=== PATIENT | male | born 1995 | race African-American/Black ===

== ENCOUNTER 2019-08-13 14:20 | Day surgery (SDC) | payer OTHER ==
[~2019-08-13] VITALS: Ht 190.5 cm; Wt 116.3 kg
--- NOTE | 2019-08-13 15:03 | REP ---
KUB: Two views. History: Swallowed foreign body. Travels size toothbrush. Findings: There is an elongate opaque foreign body 3.7 cm in length projecting in the gastric lumen in the left upper quadrant consistent with the ingested foreign body. Presumably, this is partially opaque. Bowel gas pattern is otherwise unremarkable. Psoas margins and flank stripes are intact. No mass or organomegaly is seen. Impression: Opaque ingested foreign body projecting in the lumen of the stomach. Left upper quadrant. The opaque portion measures 3.7 cm in length. Electronically Signed by Mychal Scherer MD 08/13/2019 03:17 P
[2019-08-13 17:08] LABS: BASO % 0.5 % (0.0-1.0); EOS % 0.5 % (0.0-3.0); HEMATOCRIT 48.4 % (42.0-52.0); HEMOGLOBIN 16.5 g/dl (13.5-17.5); LYMPH # 2.2 10^3/uL (1.5-5.0); LYMPH % 25.5 % (24.0-44.0); MEAN CORPUSCULAR HEMOGLOBIN 28.9 pg (27.0-33.0); MEAN CORPUSCULAR HGB CONC 34.1 g/dl (32.0-36.5); MEAN CORPUSCULAR VOLUME 84.9 fl (80.0-96.0); MONO # 0.9 10^3/uL (0.0-0.8); MONO % 10.1 % (0.0-5.0); NEUTROPHILS # 5.4 10^3/uL (1.5-8.5); NEUTROPHILS % 63.3 % (36.0-66.0); PLATELET COUNT, AUTOMATED 216 10^3/uL (150-450); WHITE BLOOD COUNT 8.6 10^3/uL (4.0-10.0)
[2019-08-13] MEDS ORDERED: fentaNYL 100 MCG/2 ML INJECTION (J3010) As Ordered ONE (17:23)
[2019-08-13] MEDS ORDERED: MIDAZOLAM INJ 2 MG/2 ML VIAL (J2250) As Ordered ONE (17:23)
[2019-08-13] MEDS ORDERED: propofoL 200 MG/20 ML VIAL As Ordered ONE (17:25)
[2019-08-13] MEDS ORDERED: SUCCINYLCHOLINE 100 MG/5 ML SYRINGE (J0330) As Ordered ONE (17:25)
[2019-08-13] MEDS ORDERED: LIDOCAINE 2% INJ 100 MG/5 ML SDV (FOR ANES.) As Ordered ONE (17:25)
[2019-08-13] MEDS ORDERED: ROCURONIUM BROMIDE 50 MG/5 ML VIAL As Ordered ONE (17:25)
[2019-08-13 17:42] LABS: BLOOD UREA NITROGEN 21 MG/DL (7-18); CARBON DIOXIDE LEVEL 26 MEQ/L (21-32); CHLORIDE LEVEL 105 MEQ/L (98-107); CREATININE FOR GFR 1.25 MG/DL (0.70-1.30); GLOMERULAR FILTRATION RATE > 60.0 (>60); GLUCOSE, FASTING 81 MG/DL (70-100); POTASSIUM SERUM 3.6 MEQ/L (3.5-5.1); SODIUM LEVEL 138 MEQ/L (136-145)
[2019-08-13] MEDS ORDERED: dexameTHASONE 4 MG/ML 1ML VIAL (J1100) As Ordered ONE (17:47)
[2019-08-13] MEDS ORDERED: ONDANSETRON 4MG/2ML VIAL (J2405) As Ordered ONE (17:48)
[2019-08-13] MEDS ORDERED: SUGAMMADEX SODIUM 500 MG/5 ML VIAL (BRIDION) As Ordered ONE (17:53)
[2019-08-13] MEDS ORDERED: LR 1,000 ML IV SCH (18:30)
[2019-08-13] MEDS ORDERED: ONDANSETRON 4MG/2ML VIAL (J2405) IV PRN (18:30)
--- NOTE | 2019-08-13 18:42 | ROOR ---
Patient Name: Claus Garza Procedure Date: 08/13/2019 5:13 PM Date of : 1995 Age: 24 Gender: Male Note Status: Finalized Procedure: Upper GI endoscopy Indications: Foreign body in the stomach Providers: Reddy Mckenzie MD Referring MD: Darvin Shankar, 2. Inpatient 2. Inpatient Requesting Provider: Medicines: Monitored Anesthesia Care Complications: No immediate complications. Procedure: Pre-Anesthesia Assessment: - Prior to the procedure, a History and Physical was performed, and patient medications and allergies were reviewed. The patient is competent. The risks and benefits of the procedure and the sedation options and risks were discussed with the patient. All questions were answered and informed consent was obtained. Patient identification and proposed procedure were verified by the physician, the nurse and the anesthesiologist in the procedure room. Mental Status Examination: alert and oriented. Airway Examination: normal oropharyngeal airway and neck mobility. Respiratory Examination: clear to auscultation. CV Examination: normal. Prophylactic Antibiotics: The patient does not require prophylactic antibiotics. Prior Anticoagulants: The patient has taken no previous anticoagulant or antiplatelet agents. ASA Grade Assessment: II - A patient with mild systemic disease. After reviewing the risks and benefits, the patient was deemed in satisfactory condition to undergo the procedure. The anesthesia plan was to use moderate sedation / analgesia (conscious sedation). Immediately prior to administration of medications, the patient was re-assessed for adequacy to receive sedatives. The heart rate, respiratory rate, oxygen saturations, blood pressure, adequacy of pulmonary ventilation, and response to care were monitored throughout the procedure. The physical status of the patient was re-assessed after the procedure. The Endoscope was introduced through the mouth, and advanced to the proximal jejunum. The upper GI endoscopy was accomplished without difficulty. The patient tolerated the procedure well. Findings: The examined esophagus was normal. Scattered moderate inflammation characterized by linear erosions and serpentine ulcerations was found in the gastric fundus, in the gastric body and at the incisura. A broken brush head and bag of suspected drug were found in the gastric body and in the gastric antrum. Removal was accomplished with a Jimenez net and snare. The pathology specimen was placed into Bottle Number 1. Charge nurse and the accompanying copper plate lithographer were update and to be processed as per hospital policy. The duodenal bulb, second portion of the duodenum, third portion of the duodenum and fourth portion of the duodenum were normal. The examined jejunum was normal. The remaining peice of brush is not found in entire exam. Impression: - Normal esophagus. - Likely foriegn body related gastritis. - A broken brush head and bag of suspected drug were found in the stomach. Removal was successful. - Normal duodenal bulb, second portion of the duodenum, third portion of the duodenum and fourth portion of the duodenum. - Normal examined jejunum. Recommendation: - Patient has a contact number available for emergencies. The signs and symptoms of potential delayed complications were discussed with the patient. Return to normal activities tomorrow. Written discharge instructions were provided to the patient. - Full liquid diet - advance as tolerated to resume regular diet. - Observe patient's clinical course. - Return to primary care physician. Reddy Mckenzie MD Reddy Mckenzie MD 08/13/2019 6:42:37 PM Electronically signed by Reddy Mckenzie MD Number of Addenda: 0 Note Initiated On: 08/13/2019 5:13 PM Estimated Blood Loss: Estimated blood loss was minimal.
[2019-08-13 19:25] VITALS: BP 136/82
--- NOTE | 2019-08-13 19:32 | CR.PDOC ---
General Date of Consultation: Aug 13, 2019 Consultation REASON FOR CONSULTATION/CHIEF COMPLAINT: Medical clearance for discharge. HISTORY OF PRESENT ILLNESS: 24-year-old male with past medical history of anxiety and depression presents from custodial after ingesting toothbrush and a bag containing drugs. Patient underwent emergent EGD with removal of toothbrush and back containing drugs, which was sealed and did not break in the process of removing. Patient reports multiple past suicide attempts with cutting his wrist and current ingestion was also an attempt to commit suicide. Patient reports ingesting the bag of drugs on Saturday and he "forgot about it" until it was mentioned today. He is seen in PACU, comfortable in bed, without any complaints, denies any shortness of breath, chest pain, nausea, vomiting, abdominal pain, diarrhea, constipation, headache or dizziness. He reports smoking marijuana on a daily basis. He has been evaluated by psychiatry recently, but has not been started on any medications. He denies taking any medications at this time. 10 point review of system is negative except for above ALLERGIES: Please see below. HOME MEDICATIONS: Please see below. PAST MEDICAL HISTORY: 1. Anxiety/depression. PAST SURGICAL HISTORY: 1. None SOCIAL HISTORY: Denies alcohol use. Smokes 3-5 cigarettes daily. Smokes marijuana every day PHYSICAL EXAMINATION: VITAL SIGNS: Please see below. GENERAL: No distress HEENT: Normocephalic, atraumatic, moist mucous membranes NECK: Supple CARDIOVASCULAR EXAMINATION: S1, S2, no murmurs RESPIRATORY EXAMINATION: Clear to auscultation, no wheezing ABDOMINAL EXAMINATION: Soft, nontender, nondistended, positive bowel sounds EXTREMITIES: Range of motion intact SKIN: No rash NEUROLOGICAL EXAMINATION: Alert and oriented 3, no focal deficits PSYCHIATRIC EXAMINATION: Calm and cooperative LABORATORY DATA: Please see below. ASSESSMENT/PLAN: 24-year-old male with past medical history of anxiety, depression, who was brought to the hospital after ingesting toothbrush and back containing drugs in an attempt to commit suicide. 1. Ingestion of toothbrush/drugs. Underwent EGD with removal of toothbrush and bag containing drugs, which was sealed and did not leak in the process of removing. Patient is asymptomatic, labs within normal limits, hemodynamically and clinically stable. Patient is medically stable and cleared for discharge back to custodial with close monitoring for 24-48 hours. 2. Anxiety/depression. Not on medication at this time, recommend outpatient follow-up with psychiatrist as patient has had multiple suicide attempts in the past month. Vital Signs/I&O Vital Signs Date Time Temp Pulse Resp B/P (MAP) Pulse Ox O2 Delivery O2 Flow Rate FiO2 08/13/19 19:18 75 18 142/77 (98) 97 Room Air 08/13/19 19:08 98 Laboratory Data Labs 24H Laboratory Tests 2 08/13/19 16:46: Immature Granulocyte % (Auto) 0.1, Neutrophils (%) (Auto) 63.3, Lymphocytes (%) (Auto) 25.5, Monocytes (%) (Auto) 10.1H, Eosinophils (%) (Auto) 0.5, Basophils (%) (Auto) 0.5, Neutrophils # (Auto) 5.4, Lymphocytes # (Auto) 2.2, Monocytes # (Auto) 0.9H, Eosinophils # (Auto) 0.0, Basophils # (Auto) 0.0, Nucleated Red Blood Cells % (auto) 0.0, Anion Gap 7L, Glomerular Filtration Rate > 60.0, Calcium Level 9.0 CBC/BMP Laboratory Tests 08/13/19 16:46 Allergies Coded Allergies: No Known Allergies (Unverified , 08/13/19) Home Medications No Active Prescriptions or Reported Meds DARCY GOMEZ MD Aug 13, 2019 19:32
== END 2019-08-13 19:57 | disposition home or self-care (01) ==
LOC: M ED 14:20 → M SDC 14:21
PROVIDERS: ATTEND Internal Medicine Gastroenterology
DX: T18.108A Unspecified foreign body in esophagus causing other injury, initial encounter (principal); X58.XXXA Exposure to other specified factors, initial encounter; Y92.138 Other place on military base as the place of occurrence of the external cause; R45.851 Suicidal ideations; F32.9 Major depressive disorder, single episode, unspecified; F41.9 Anxiety disorder, unspecified; F17.210 Nicotine dependence, cigarettes, uncomplicated; F12.10 Cannabis abuse, uncomplicated
CPT/HCPCS: 43247; 74018; 80048; 85025; 99284; J0330; J1100; J2250; J2405; J3010

== ENCOUNTER 2019-08-17 20:09 | Observation (INO) | payer OTHER ==
[~2019-08-17] VITALS: Ht 185.4 cm; Wt 115.0 kg
[2019-08-17] MEDS ORDERED: LIDOCAINE 2% INJ 100 MG/5 ML SDV (FOR ANES.) As Ordered ONE (22:02)
[2019-08-17] MEDS ORDERED: propofoL 200 MG/20 ML VIAL As Ordered ONE ×2 (22:02→22:55)
[2019-08-17] MEDS ORDERED: SUCCINYLCHOLINE 100 MG/5 ML SYRINGE (J0330) As Ordered ONE (22:02)
[2019-08-17] MEDS ORDERED: MIDAZOLAM INJ 2 MG/2 ML VIAL (J2250) As Ordered ONE (22:02)
[2019-08-17] MEDS ORDERED: fentaNYL 100 MCG/2 ML INJECTION (J3010) As Ordered ONE (22:02)
[2019-08-17] MEDS ORDERED: ONDANSETRON 4MG/2ML VIAL (J2405) As Ordered ONE (22:47)
[2019-08-17] MEDS ORDERED: dexameTHASONE 4 MG/ML 1ML VIAL (J1100) As Ordered ONE (22:48)
--- NOTE | 2019-08-17 23:35 | ROOR ---
Patient Name: Claus Garza Procedure Date: 08/17/2019 9:44 PM Date of : 1995 Age: 24 Gender: Male Note Status: Finalized Procedure: Upper GI endoscopy Indications: Foreign body in the stomach, Foreign body in the small bowel, Foreign body in the GI tract Providers: Darvin RO MD Referring MD: 2. Inpatient 2. Inpatient Requesting Provider: Medicines: Propofol per Anesthesia Complications: No immediate complications. Procedure: Pre-Anesthesia Assessment: - The heart rate, respiratory rate, oxygen saturations, blood pressure, adequacy of pulmonary ventilation, and response to care were monitored throughout the procedure. The Endoscope was introduced through the mouth, and advanced to the second/third part of duodenum. The Endoscope was then withdrawn and a Pediatric Colonoscope was introduced through the mouth, and advanced to at least the fourth part of duodenum . The upper GI endoscopy was accomplished without difficulty. The patient tolerated the procedure well. Findings: The esophagus was normal. The stomach was normal. The examined duodenum was normal. Impression: - Normal esophagus. - Normal stomach. - Normal examined duodenum up to 4 th portion. - No specimens collected. - Foreign Body was not found--Foreign body has passed pylorus and beyond reach with EGD/pediatric colonoscope. Recommendation: - [facility] the [facility]--Await spontaneous passage of FB/Monitor with daily KUB - Clear liquid diet. - Daily KUB/Abdominal films til Foreign body has completely passed GI tract on Xray. - Stat CT A/P r/o perf for severe abdominal pain/peritoneal signs/fever. - Consult surgery if FB does not spontaneously pass GI tract/for complications/obstruction/abdominal pain. Darvin Ro MD Darvin RO MD 08/17/2019 11:35:23 PM Electronically signed by Darvin RO MD Number of Addenda: 0 Note Initiated On: 08/17/2019 9:44 PM Estimated Blood Loss: Estimated blood loss: none.
[2019-08-17] MEDS ORDERED: LR 1,000 ML IV SCH (23:45)
[2019-08-17] MEDS ORDERED: ONDANSETRON 4MG/2ML VIAL (J2405) IV PRN (23:45)
[2019-08-17] MEDS ORDERED: oxyCODONE 5MG TAB PO PRN (23:45)
[2019-08-17] MEDS ORDERED: fentaNYL 100 MCG/2 ML INJECTION (J3010) IV PRN (23:45)
[2019-08-17] MEDS ORDERED: HYDROMORPHONE HCL 0.5 MG/ 0.5 ML SYRINGE (J1170 PER 1) IV PRN (23:45)
[2019-08-17] MEDS ORDERED: oxyCODONE 5MG TAB As Ordered ONE (23:57)
[2019-08-18] VITALS (8 sets, daily range): BP systolic 121–140; BP diastolic 69–87
[2019-08-18] MEDS ORDERED: MOM 30ML SUSPENSION UDC PO ONE (00:30)
[2019-08-18] MEDS ORDERED: ACETAMINOPHEN TAB 650MG DOSE (2X325MG) PO PRN (01:00)
[2019-08-18] MEDS ORDERED: MOM 30ML SUSPENSION UDC PO PRN (01:00)
[2019-08-18] MEDS ORDERED: MAALOX 30 ML SUSP *UDC PO PRN (01:00)
--- NOTE | 2019-08-18 01:05 | HPEPDOC ---
General Date of Admission Aug 18, 2019 at 00:31 Date of Service: Aug 18, 2019 Chief Complaint The patient is a 24-year-old male admitted with a reason for visit of Progress Of Foreign Body. Source: Patient Exam Limitations: No limitations Timing/Duration: 4-6 hours Associated Symptoms: Denies Symptoms History of Present Illness 24 male with severe history of depression and multiple suicide attempts presents from skilled nursing due to ingestion of a toothbrush. Patient reports that he felt suicidal and attempted to kill himself by swallowing a toothbrush. The toothbrush was snapped in half so it would have sharp edges. GI was called from the ER and patient underwent emergency endoscopy which is unable to retrieve foreign object. As per GI, and likely pass the pylorus at this time and is unable to be reached. Patient currently states that he has no pain or discomfort right now. He denies any nausea, vomiting, abdominal pain. He has no fevers, chills, shortness of breath, chest pain, bloody stools. His last bowel movement was approximately 12:00 this afternoon which is normal. He has no other complaints this time. Patient does report hearing voices at times to hurt himself. However these voices have not been heard in quite some time. Denies any visual hallucinations but does endorse depressed mood at this time. When asked the patient was hurt himself he states yes but he has no further plan. Patient to be admitted for observation as we wait for an object to spontaneous past as per GI recommendations. Issue currently is incarcerated at this time. He smokes cigarettes occasionally, drinks occasionally, smokes marijuana when home. Home Medications No Active Prescriptions or Reported Meds Allergies Coded Allergies: No Known Allergies (Unverified , 08/17/19) Past Medical History Medical History Severe depression and multiple suicide attempts Surgical History None Family History Significant Family History: No pertinent family hx, Hypertension Social History * Smoker: current smoker (smokes a few cigarettes daily) Alcohol: occationally Drugs: marijuana Psychosocial History: Depression, Prior suicide attempt A-FIB/CHADSVASC A-FIB History Current/History of A-Fib/PAF?: No Review of Systems Constitutional: Denies: Chills, Fever, Malaise, Night Sweats, Weakness, Fatigue , Weight Loss, Lethargy, Other Eyes: Denies: Pain, Vision change ENT: Denies: Head Aches, Sore Throat, Epistaxis Skin: Denies: Rash, Lesions Pulmonary: Denies: Dyspnea, Cough, Pleuritic Chest Pain Cardiovascular: Denies: Chest Pain, Palpitations, Orthopnea, Edema, Lt Headed ness Gastrointestinal: Denies: Nausea, Vomiting, Abdominal Pain, Diarrhea, Constipation, Melena, Hematochezia Genitourinary: Denies: Dysuria Hematologic: Denies: Bruising Musculoskeletal: Denies: Back Pain Neurological: Denies: Weakness, Numbness, Change in speech, Confusion Psych: Reports: Depression, Thoughts of Self Harm; Denies: Thoughts of Harming Other Physical Examination General Exam: Positive: Alert, Cooperative, No Acute Distress Eye Exam: Positive: PERRLA, Conjunctiva & lids normal, EOMI ENT Exam: Positive: Atraumatic, Mucous membr. moist/pink, Tongue Midline; Negative: Pharyngeal Edema Neck Exam: Positive: Supple, +2 carotid pulse wo bruit; Negative: JVD, thyromegaly Chest Exam: Positive: Clear to auscultation, Normal air movement Heart Exam: Positive: Rate Normal, Regular Rhythm, Normal S1, Normal S2; Negative: Murmurs, Rubs Abdomen Exam: Positive: Normal bowel sounds, Soft, Other (no palpable masses noted on deep palpation); Negative: Tenderness, Hepatospenomegaly Extremity Exam: Negative: Clubbing Skin Exam: Positive: Nl turgor and temperature; Negative: Rash, Breakdown Neuro Exam: Positive: Strength at 5/5 X4 ext, Normal Tone, Sensation Intact, Cranial Nerves 3-12 NL Psych Exam: Positive: Mental status NL, Oriented x 3, Other (appears to be depressed, withdrawn.) Vital Signs Vital Signs Date Time Temp Pulse Resp B/P (MAP) Pulse Ox O2 Delivery O2 Flow Rate FiO2 08/18/19 00:10 74 16 130/81 (97) 98 Room Air 08/18/19 00:00 97.4 08/17/19 23:25 10 RAD Interpretation STUDY: abdominal x-ray Rad Actions: Films Reviewed RAD Interpretation: Other Result Comments: (foreign body is visible around the epigastric area) Assessment/Plan 24-year-old male with past medical history of severe depression and multiple suicide attempts presents for ingestion of a broken tooth brush in a suicide attempt again. EGD was attempted with no success as the foreign object had already passed through the pylorus. Patient to be admitted for observation so that we can visualize foreign object being passed via his rectum without any complications. Patient is currently an inmate in penitentiary and correctional officers are with him at bedside. Problems (1) Swallowed foreign body Status: Acute Problem Text: Patient swallowed a broken tooth brush in a suicide attempt. Unable to retrieve the item via EGD by the GI team. - Clear liquid diet for now - Serial KUBs every 8 hours - Immediate surgical consult if patient becomes unstable, has worsening abdominal pain, or any evidence of obstruction present due to risk of perforation - GI team signed off - Once foreign body passes patient will be stable for discharge back to penitentiary (2) Depressed Problem Text: Patient is severely depressed and has had multiple suicide attempts in the past involving gunshots, wrist slitting, swallowing a foreign objects, drowning, attempt to hang himself. Patient appears to be acutely depressed at this time and endorses thoughts of hurting self although he has no plan. Patient would likely benefit from psychiatric evaluation at this time given he is a threat to himself -Will call for psych consult given the patient's severe depression and multiple suicide attempts in the past - No need for one-to-one observation given correctional officers present at bedside 24 7 Plan / VTE VTE Prophylaxis Ordered?: Yes Plan Diet: Continue Current Activity: Continue Current Anticipated Discharge: Other Anticipated D/C (penitentiary versus psych) TOMI LOVE MD Aug 18, 2019 01:05
--- NOTE | 2019-08-18 07:52 | REP ---
Clinical: Follow up ingested foreign body. Technique: Supine views of the chest abdomen and pelvis. Findings: The 3.7 cm opaque foreign body is again identified in the epigastric region. No bowel obstruction. Fecal stasis and constipation cannot be excluded. No evidence for perforation. Organomegaly. Skeletal structures intact. Impression: Foreign body again identified in the epigastric region. Electronically Signed by Serafin Clayton MD 08/18/2019 07:44 A
--- NOTE | 2019-08-18 08:52 | REP ---
Clinical: Progression of foreign body. Technique: Two supine views of the abdomen and pelvis. Findings: The 3 cm radiopaque foreign body previously identified is now visualized in the right upper quadrant of the abdomen. No other obvious foreign body is identified. The bowel gas pattern is unremarkable and without obstruction or perforation. No organomegaly. Skeletal structures are intact. Impression: Foreign body again identified now in the right upper quadrant. Electronically Signed by Serafin Clayton MD 08/18/2019 08:43 A
--- NOTE | 2019-08-18 19:02 | IPNPDOC ---
Date Seen The patient was seen on 08/18/19. Progress Note SUBJECTIVE: 24-year-old male with past medical history of anxiety and depression, multiple suicide attempts who was recently brought to the hospital after swallowing a toothbrush and attempt to commit suicide. He underwent EGD and removal of toothbrush at that time. He now returns with another suicide attempt from swallowing a toothbrush, underwent repeat EGD but unsuccessful in removing toothbrush as it had already passed the pylorus. He is seen in the morning, comfortable, asymptomatic, denies any short of breath, chest pain, na usea, vomiting, abdominal pain or diarrhea. He reports repeat suicide attempt secondary to his current situation in senior care. 10 point review of system is negative except for above PHYSICAL EXAMINATION: VITAL SIGNS: Please see below. GENERAL: No distress HEENT: Normocephalic, atraumatic, moist mucous membranes NECK: Supple CARDIOVASCULAR EXAMINATION: S1, S2, no murmurs RESPIRATORY EXAMINATION: Clear to auscultation, no wheezing ABDOMINAL EXAMINATION: Soft, nontender, nondistended, positive bowel sounds EXTREMITIES: Range of motion intact SKIN: No rash NEUROLOGICAL EXAMINATION: Alert and oriented 3, no focal deficits PSYCHIATRIC EXAMINATION: Calm and cooperative LABORATORY DATA, IMAGING STUDIES, MICROBIOLOGY: Please see below. ASSESSMENT AND PLAN: 24-year-old male with past medical history anxiety, depression and multiple suicide attempts, is admitted after attempting to commit suicide by swelling his toothbrush. PROBLEMS: 1. Suicide attempt: Multiple times in the past, swallowed a toothbrush, unable to extract via EGD, asymptomatic and hemodynamically stable, continue daily abdominal x-rays, we'll keep for observation until he passes his toothbrush. 2. Anxiety/depression: Chronic, multiple suicide attempt in the past, attributed to current situation in senior care, psychiatric eval pending. DVT prophylaxis: Not needed. GI prophylaxis: Not needed VS, I&O, 24H, Fishbone Vital Signs/I&O Vital Signs Date Time Temp Pulse Resp B/P (MAP) Pulse Ox O2 Delivery O2 Flow Rate FiO2 08/18/19 18:00 98.5 67 15 139/83 (101) 100 Room Air 08/17/19 23:25 10 I&O- Last 24 Hours up to 6 AM 08/18/19 06:00 Intake Total 920 ml Output Total 0 ml Balance 920 ml DARCY GOMEZ MD Aug 18, 2019 19:02
[2019-08-19 05:48] LABS: HEMATOCRIT 44.6 % (42.0-52.0); HEMOGLOBIN 15.1 g/dl (13.5-17.5); MEAN CORPUSCULAR HEMOGLOBIN 28.1 pg (27.0-33.0); MEAN CORPUSCULAR HGB CONC 33.9 g/dl (32.0-36.5); MEAN CORPUSCULAR VOLUME 83.1 fl (80.0-96.0); PLATELET COUNT, AUTOMATED 201 10^3/uL (150-450); RED BLOOD COUNT 5.37 10^6/uL (4.30-6.10); WHITE BLOOD COUNT 7.6 10^3/uL (4.0-10.0)
[2019-08-19 06:00] VITALS: BP 126/79
[2019-08-19 06:08] LABS: BLOOD UREA NITROGEN 12 MG/DL (7-18); CALCIUM LEVEL 8.7 MG/DL (8.5-10.1); CARBON DIOXIDE LEVEL 30 MEQ/L (21-32); CHLORIDE LEVEL 104 MEQ/L (98-107); CREATININE FOR GFR 1.32 MG/DL (0.70-1.30); GLOMERULAR FILTRATION RATE > 60.0 (>60); GLUCOSE, FASTING 89 MG/DL (70-100); MAGNESIUM LEVEL 2.7 MG/DL (1.8-2.4); POTASSIUM SERUM 3.6 MEQ/L (3.5-5.1); SODIUM LEVEL 137 MEQ/L (136-145)
[2019-08-19] MEDS ORDERED: POTASSIUM CHLORIDE 10 MEQ SR TABLET PO ONE (09:00)
[2019-08-19] MEDS ORDERED: INFLUENZA QUADRIVALENT PF VACCINE 0.5ML SYRINGE (90686) IM ONE (09:00)
--- NOTE | 2019-08-19 09:06 | REP ---
Clinical: Follow-up foreign body. Technique: Two supine views of the abdomen and pelvis. Comparison: 08/18/2019. Findings: Previously identified foreign body is no longer visible and likely passed. Bowel gas pattern is nonspecific and without obstruction or obvious perforation. Skeletal structures are intact. Impression: No foreign body identified on current examination. Bowel gas pattern is normal/nonspecific. Electronically Signed by Serafin Clayotn MD 08/19/2019 08:58 A
--- NOTE | 2019-08-19 20:07 | DS.PDOC ---
Discharge Summary General Date of Admission Aug 18, 2019 at 00:31 Date of Discharge 08/19/19 Attending Physician: DARCY GOMEZ MD Discharge Summary PROCEDURES PERFORMED DURING STAY: EGD ADMITTING DIAGNOSES: 1. Suicidal ideation, swallowed foreign body DISCHARGE DIAGNOSES: 1. Suicidal ideation, swallowed foreign body COMPLICATIONS/CHIEF COMPLAINT: Progress Of Foreign Body. HISTORY OF PRESENT ILLNESS: 24 y.o male w/ PMH of anxiety, depression & multiple suicide attempts was admitted after swallowing his tooth brush in assisted, in an attempt to hurt himself. He has done the same thing last week, underwent EGD at that time with removal of the toothbrush. He underwent repeat EGD during this hospitalization but we were unable to remove the toothbrush as it had already passed the pylorus. He remained completely asymptomatic & hemodynamically stable during hospitalization. Toothbrush was monitor with daily abdominal x-rays and today's X-ray no longer shows the toothbrush as it has likely passed during his bowel movements overnight/earlier today. He is clinically and hemodynamically stable for discharge. It is strongly advised the he follow up with his PCP & Psychiatrist. HOSPITAL COURSE: As above DISCHARGE MEDICATIONS: Please see below. ALLERGIES: Please see below. PHYSICAL EXAMINATION: VITAL SIGNS: Please see below. GENERAL: No distress HEENT: Normocephalic, atraumatic, moist mucous membranes NECK: Supple CARDIOVASCULAR EXAMINATION: S1, S2, no murmurs RESPIRATORY EXAMINATION: Clear to auscultation, no wheezing ABDOMINAL EXAMINATION: Soft, nontender, nondistended, positive bowel sounds EXTREMITIES: Range of motion intact SKIN: No rash NEUROLOGICAL EXAMINATION: Alert and oriented 3, no focal deficits PSYCHIATRIC EXAMINATION: Calm and cooperative LABORATORY DATA: Please see below. IMAGING: Abdominal X-ray today without presence of foreign body PROGNOSIS: Fair ACTIVITY: As tolerated DIET: Regular DISCHARGE PLAN: Follow up w/ PCP & Psychiatrist within 1 week DISPOSITION: 70 Xfer Other. DISCHARGE INSTRUCTIONS: 1. As above DISCHARGE CONDITION: Stable TIME SPENT ON DISCHARGE: Greater than 25 minutes. Vital Signs/I&Os Vital Signs Date Time Temp Pulse Resp B/P (MAP) Pulse Ox O2 Delivery O2 Flow Rate FiO2 08/19/19 06:00 97.6 66 17 126/79 (95) 99 Room Air 08/17/19 23:25 10 I&O- Last 24 Hours up to 6 AM 08/19/19 06:00 Intake Total 1790 ml Output Total 400 ml Balance 1390 ml Laboratory Data Labs 24H Laboratory Tests 2 08/19/19 05:20: Nucleated Red Blood Cells % (auto) 0.0, Anion Gap 3L, Glomerular Filtration Rate > 60.0, Calcium Level 8.7, Magnesium Level 2.7H CBC/BMP Laboratory Tests 08/19/19 05:20 Discharge Medications No Active Prescriptions or Reported Meds Allergies Coded Allergies: No Known Allergies (Unverified , 08/17/19) DARCY GOMEZ MD Aug 19, 2019 20:07
== END 2019-08-19 13:35 | disposition other institution (70) ==
LOC: M ED 20:09 → M SDC 20:10 → ENRESERVTM 23:17 → ENRESERVDT 23:17 → M MS5PR 08-18 00:31
PROVIDERS: ADMIT Internal Medicine; ATTEND Internal Medicine
DX: T18.9XXA Foreign body of alimentary tract, part unspecified, initial encounter (principal); T14.91XA Suicide attempt, initial encounter; X58.XXXA Exposure to other specified factors, initial encounter; Y92.148 Other place in prison as the place of occurrence of the external cause; Z91.5 Personal history of self-harm; F17.200 Nicotine dependence, unspecified, uncomplicated; Z23 Encounter for immunization
CPT/HCPCS: 36415; 43235; 74018; 76010; 80048; 83735; 85027; 90471; 90686; 99284; J0330; J1100; J2250; J2405; J3010